=== PATIENT | female | born 1995 | race Hispanic/Latino ===

== ENCOUNTER 2017-03-20 10:45 | Emergency (ER) | payer OTHER, SELFPAY ==
[2017-03-20] MEDS ORDERED: Ondansetron ODT 4 MG TAB ONE (11:28)
== END 2017-03-20 11:47 | disposition home or self-care (01) ==
LOC: ERS 10:45
DX: O99.512 Diseases of the respiratory system complicating pregnancy, second trimester (principal); J11.1 Influenza due to unidentified influenza virus with other respiratory manifestations; O99.342 Other mental disorders complicating pregnancy, second trimester; F41.9 Anxiety disorder, unspecified; Z3A.14 14 weeks gestation of pregnancy
CPT/HCPCS: 99283; Q0162

== ENCOUNTER 2017-04-18 10:42 | Emergency (ER) | payer SELFPAY ==
[2017-04-18 11:24] LABS: #Basophils 0.1 thou/uL (0.0-0.2); #Eosinphils 0.1 thou/uL (0.0-0.7); #Lymphocytes 2.3 thou/uL (1.20-3.40); #Monocytes 0.4 thou/uL (0.11-0.59); #Neutrophils 6.9 thou/uL (1.40-6.50); %Basophils 0.6 % (0.0-1.0); %Eosinophils 1.2 % (0.0-10.0); %Lymphocytes 23.6 % (21.0-51.0); %Monocytes 4.4 % (0.0-10.0); %Neutrophils 70.3 % (42.0-75.0); Hemoglobin 11.4 g/dL (12.0-16.0); Mean Corpuscular HGB CONC 32.7 g/dL (32.0-36.0); Mean Corpuscular Hemoglobin 27.3 pg (27.0-31.0); Mean Corpuscular Volume 83.3 fl (81.0-99.0); Mean Platelet Volume 6.4 fL (7.4-10.4); Platelet Count 333 thou/uL (130-400); RBC Distribution Width 14.1 % (11.5-14.5); Red Blood Cell (RBC) Count 4.19 mill/uL (4.20-5.40); White Blood Cell (WBC) Count 9.8 thou/uL (4.8-10.8)
[2017-04-18] MEDS ORDERED: Acetaminophen 500 MG TAB ONE (11:26)
[2017-04-18 11:27] LABS: BHCG - Serum POSITIVE (NEGATIVE); Pregs Control Background? CLEAR/WHITE (CLR/WHITE); Pregs Control Bar Appear? YES (CONTROL BAR)
[2017-04-18 11:36] LABS: ALT (SGPT) Less than 7 U/L (8-55); AST (SGOT) 12 U/L (5-34); Albumin 3.4 g/dL (3.5-5.0); Alkaline Phosphatase 71 U/L (40-150); Anion Gap 12 mmol/L (10-20); BUN (Urea Nitrogen) 7 mg/dL (7.0-18.7); Bilirubin, Total 0.2 mg/dL (0.2-1.2); Calc. Creatinine Clearance 0 mL/min (70-130); Carbon Dioxide 24 mmol/L (22-29); Chloride 104 mmol/L (98-107); Estimated GFR-MDRD Greater than 90; Globulin 3.3 g/dL (2.4-3.5); Glucose 79 mg/dL (70-105); Lipase 38 U/L (8-78); Potassium 3.9 mmol/L (3.5-5.1); Protein, Total 6.7 g/dL (6.0-8.3); Sodium 136 mmol/L (136-145)
[2017-04-18 12:32] LABS: Bilirubin Negative (Negative); Blood, Urine Negative (Negative); Clarity TURBID (Clear); Glucose, Urine (Dipstick) Negative (Negative); Leukocyte Small (Negative); Nitrite Negative (Negative); Protein, Urine (Dipstick) Negative (Neg-Trace); Specific Gravity, Urine 1.019 (1.002-1.036); Urobilinogen 0.2 mg/dL (0.2-1.0); pH, Urine 7.5 (5.0-9.0)
[2017-04-18 12:40] LABS: Bacteria/HPF 2+ HPF (None Seen); Hyaline Casts/LPF 0-3 HYALINE CAST LPF (0-3 Hyaline); Pathc Cast-AUWi Flag 0.54 (0-2.49); WBC/HPF 21-50 HPF (0-3)
--- NOTE | 2017-04-18 13:03 | ULT ---
ULTRASOUND COMPLETE: History: 21-year-old female with history of back pain with a bulging umbilical hernia. History of nabothian cy st. FINDINGS: Fetus is in a transverse lie with head on the maternal left side. The placenta is anterior. Amniotic fluid is within normal limits. Cervical length approximates 4.9 cm. There is an approximately 1.1 x 1.3 x 1.7 cm cervical nabothian cyst. rate is 144 beats/minute. anatomy: anatomy was less then optimally visualized on this study. bladder, diaphra gm, three vessel cord, four chamber heart, stomach, and cord insert regions were demonstrated. Most o f the remainder of the anatomy was incompletely seen on this study. biometry: BPD 4.2 cm 18 weeks 5 days HC 16.3 cm 19 weeks 0 days AC 14.1 cm 19 weeks 3 days FL 3.1 cm 19 weeks 5 days IMPRESSION: 1. Single viable intrauterine fetus at 19 weeks 0 days, EDC 8-8-18. Estimated weight is 294 gra ms with a percentile of 81. 2. Unremarkable cervical length. Inadequate or incomplete anatomic visualization of the fetus. Other findings as above. POS: [facility]
[2017-04-18 13:04] LABS: RBC/HPF 0-3 HPF (0-3)
[2017-04-18] MEDS ORDERED: Ondansetron ODT 4 MG TAB ONE (13:31)
== END 2017-04-18 13:40 | disposition home or self-care (01) ==
LOC: ERS 10:42
DX: O99.612 Diseases of the digestive system complicating pregnancy, second trimester (principal); K42.9 Umbilical hernia without obstruction or gangrene; O23.42 Unspecified infection of urinary tract in pregnancy, second trimester; O99.342 Other mental disorders complicating pregnancy, second trimester; F41.9 Anxiety disorder, unspecified; Z3A.19 19 weeks gestation of pregnancy
CPT/HCPCS: 36415; 76805; 80053; 81003; 81015; 83690; 84702; 84703; 85025; 86900; 86901; 87077; 87086; 87186; Q0162

== ENCOUNTER 2018-09-17 14:32 | Outpatient (CLI) | payer OTHER ==
--- NOTE | 2018-09-17 15:32 | ULT ---
ULTRASOUND OBSTETRICAL COMPLETE: 09/17/18 HISTORY: 23-year-old female multigravida encounter for supervision of normal in second trimester. Ev aluate anatomy. FINDINGS: number: Rader. lie: Breech. Maternal cervix: 4 cm in length and closed. Placenta: Anterior. No placenta previa. Amniotic fluid volume: MADINA 14.5 cm. heart rate: 146 bpm The following anatomy is visualized, with no evidence of anomalies: Head, lateral ventricles, cerebellum, nose and lips, spine, upper limbs, lower limbs, four chamber he art, umbilical cord, cord insertion, stomach, kidneys, and bladder. biometry: Head circumference (HC): 19.4 cm 21w 5d Biparietal diameter (BPD): 5.1 cm 21w 4d Abdominal circumference (AC): 17.2 cm 22w 2d Femur length (FL): 3.7 cm 21w 5d Average ultrasound age (AUA): 21w 6d Estimated date of delivery (JAXON): 01/22/19 Estimated weight (EFW): 460 g +/- 67g (1 lb. 0 oz. +/- 2 oz.). IMPRESSION: 1. Live 2nd trimester intrauterine gestation. 2. Estimated gestational age of 21 weeks, 6 days. 3. Breech lie. 4. No anatomical abnormalities. jn [] POS: [facility]
== END 2018-09-17 14:33 | disposition home or self-care (01) ==
LOC: BICULT 14:32
PROVIDERS: ATTEND Family Medicine
DX: O09.92 Supervision of high risk pregnancy, unspecified, second trimester (principal); Z3A.21 21 weeks gestation of pregnancy; O32.1XX0 Maternal care for breech presentation, not applicable or unspecified
CPT/HCPCS: 76805

== ENCOUNTER 2018-12-03 09:20 | Day surgery (SDC) | payer OTHER ==
[2018-12-03 10:19] VITALS: BMI 34.5
[2018-12-03 10:20] VITALS: BP 111/56; TEMP 98.3
[2018-12-03] MEDS ORDERED: hydrALAZINE 20 MG/ML VIAL SLOW IVP PRN (10:43)
[2018-12-03 11:10] LABS: #Basophils 0.1 thou/uL (0.0-0.2); #Lymphocytes 1.9 thou/uL (1.20-3.40); #Monocytes 0.4 thou/uL (0.11-0.59); #Neutrophils 6.9 thou/uL (1.40-6.50); %Basophils 0.8 % (0.0-1.0); %Eosinophils 0.5 % (0.0-10.0); %Lymphocytes 20.3 % (21.0-51.0); %Monocytes 4.4 % (0.0-10.0); %Neutrophils 73.9 % (42.0-75.0); Mean Corpuscular HGB CONC 32.4 g/dL (32.0-36.0); Mean Corpuscular Hemoglobin 25.9 pg (27.0-31.0); Mean Corpuscular Volume 79.8 fL (78.0-98.0); Mean Platelet Volume 7.4 fL (7.4-10.4); Platelet Count 326 thou/uL (130-400); RBC Distribution Width 14.5 % (11.5-14.5); Red Blood Cell (RBC) Count 3.87 mill/uL (4.20-5.40); White Blood Cell (WBC) Count 9.4 thou/uL (4.8-10.8)
[2018-12-03 11:30] LABS: ALT (SGPT) 9 U/L (8-55); AST (SGOT) 13 U/L (5-34); Albumin 3.2 g/dL (3.5-5.0); Alkaline Phosphatase 126 U/L (40-110); Anion Gap 9 mmol/L (10-20); BUN (Urea Nitrogen) 6 mg/dL (7.0-18.7); Bilirubin, Total 0.3 mg/dL (0.2-1.2); Calc. Creatinine Clearance 211 mL/min (70-130); Calcium 8.5 mg/dL (7.8-10.44); Carbon Dioxide 24 mmol/L (22-29); Chloride 105 mmol/L (98-107); Estimated GFR-MDRD Greater than 90; Globulin 3.4 g/dL (2.4-3.5); Glucose 73 mg/dL (70-105); Potassium 3.9 mmol/L (3.5-5.1); Protein, Total 6.6 g/dL (6.0-8.3); Sodium 134 mmol/L (136-145)
[2018-12-03 12:01] LABS: Bacteria/HPF None Seen HPF (None Seen); Bilirubin Negative (Negative); Blood, Urine Negative (Negative); Clarity Clear (Clear); Glucose, Urine (Dipstick) Normal (Negative); Leukocyte Negative Leu/uL (Negative); Nitrite Negative (Negative); Protein, Urine (Dipstick) 20 mg/dL (Neg-Trace); Urobilinogen Normal mg/dL (Less than 2); WBC/HPF 0-3 HPF (0-3)
[2018-12-03] MEDS ORDERED: Lactated Ringer's 1,000 ML IV SCH (13:00)
--- NOTE | 2018-12-04 07:26 | SS ---
DATE OF ADMISSION: 12/03/2018 DATE OF DISCHARGE: 12/03/2018 REGULAR PHYSICIAN: Eugenio Hagen MD. EVALUATING PHYSICIAN: Rufus Beavers MD CHIEF COMPLAINT: Multiple complaints, not feeling well. HISTORY OF PRESENT ILLNESS: Ms. Lanier is a 23-year-old G4, P4, with an estimated date of confinement of 01/11/2019, who presents with multiple complaints including feeling of choking, nausea with 3 episodes of vomiting as well as pelvic pressure. She denies leakage of fluid or bleeding. Her care has been with Dr. Hagen and she has a scheduled for later in her . PAST OBSTETRICAL HISTORY: Includes 3 sections, one for a set of twins. She has also had a cerclage in the past. PAST MEDICAL HISTORY: None. PAST SURGICAL HISTORY: section x3, cerclage placement. CURRENT MEDICATIONS: vitamins. ALLERGIES: NO KNOWN ALLERGIES. SOCIAL HISTORY: Denies tobacco, alcohol, or drug use. FAMILY HISTORY: Unremarkable. REVIEW OF SYSTEMS: Denies bleeding or ruptured membranes. She denies decreased movement. PHYSICAL EXAMINATION: VITAL SIGNS: Initial blood pressure is 111/56 with a pulse of 89. Her O2 saturation on room air is 100%. GENERAL: She answers questions appropriately and does not appear to be in significant distress. ABDOMEN: Soft, nontender, and gravid. PELVIC: Shows the cervix to be closed, midposition with the presenting part high. heart rate tracing is stable. There are no decelerations seen. No significant uterine contractions are seen. LABORATORY DATA: White count 9.4, hemoglobin and hematocrit 10.0 and 30.9 respectively. Platelet count 326,000. Chemistries; sodium 134, potassium 3.9, carbon dioxide 24, BUN 6, creatinine 0.63, glucose 73, total bilirubin 0.3, AST and ALT are 13 and 9 respectively. Urinalysis shows a specific gravity of 1.024 with ketones noted. The remainder of her urinalysis is negative. The patient was hydrated with a liter of lactated Ringer's and feels much better after this was administered. ASSESSMENT: 1. A 34 and 3/7th week intrauterine . 2. No evidence of labor. 3. Suspect reflux as etiology of discomfort. PLAN: The patient will be dismissed home. She was instructed to keep herself well hydrated at home with 6 to 8 glasses of water a day. She was also told that she could use Pepcid [id number] and take this twice a day for any reflux like symptoms she might encounter. She voiced understanding of her discharge instructions and is set to see Dr. Hagen within the next 2 weeks. Job ID: [id number]
== END 2018-12-03 14:40 | disposition home or self-care (01) ==
LOC: L&D/OP 09:20
PROVIDERS: ATTEND Family Medicine
DX: O21.2 Late vomiting of pregnancy (principal); O99.89 Other specified diseases and conditions complicating pregnancy, childbirth and the puerperium; R10.2 Pelvic and perineal pain; O34.219 Maternal care for unspecified type scar from previous cesarean delivery; Z3A.34 34 weeks gestation of pregnancy
CPT/HCPCS: 36415; 80053; 81003; 85025; 96360; 99283

== ENCOUNTER 2019-01-07 12:00 | Inpatient (IN) | payer OTHER ==
[2019-01-09] MEDS: Lactated Ringer's 1,000 ML IV SCH ×2 (11:20→12:08)
[2019-01-09] MEDS ORDERED: Bicitra 30 ML UDCUP PO SCH (11:42)
[2019-01-09] MEDS ORDERED: hydrALAZINE 20 MG/ML VIAL SLOW IVP PRN ×2 (11:42→16:09)
[2019-01-09] MEDS ORDERED: CEFAZOLIN 2 GM in Premix Bag 1 BAG IVPB SCH (11:42)
[2019-01-09] MEDS ORDERED: Promethazine HCl 25 MG/ML VIAL IM PRN ×2 (11:42→12:58)
[2019-01-09] MEDS ORDERED: Ondansetron PF 4 MG/2 ML Vial IVP PRN ×3 (11:42→16:09)
[2019-01-09] MEDS ORDERED: MORPHINE 5 MG/10 ML PF VIAL ONE (11:44)
[2019-01-09] MEDS ORDERED: PHENYLEPHRINE-NS 100 MCG/ML 10 ML SYRINGE ONE ×2 (11:45→11:49)
[2019-01-09] MEDS ORDERED: Ketorolac Tromethamine 30 MG/ML VIAL ONE (11:45)
[2019-01-09] MEDS ORDERED: Oxytocin 10 UNITS/ML VIAL ONE ×2 (11:45→13:44)
[2019-01-09] MEDS ORDERED: Ondansetron PF 4 MG/2 ML Vial ONE (11:45)
[2019-01-09 11:48] LABS: Mean Corpuscular HGB CONC 32.2 g/dL (32.0-36.0); Mean Corpuscular Volume 77.8 fL (78.0-98.0); Mean Platelet Volume 7.6 fL (7.4-10.4); Platelet Count 334 thou/uL (130-400); RBC Distribution Width 14.6 % (11.5-14.5); White Blood Cell (WBC) Count 7.9 thou/uL (4.8-10.8)
[2019-01-09 12:14] VITALS: BMI 34.4
[2019-01-09 12:34] LABS: HBSAg Index 0.17 S/CO (0-0.99); Hep B Surf Ag Non-Reactive S/CO (NonReactive)
[2019-01-09] MEDS ORDERED: Ondansetron HCl/PF 4 MG/2 ML Vial IVP PRN (12:58)
[2019-01-09] MEDS ORDERED: Naloxone HCl 0.4 mg/ml Vial IVP PRN ×2 (12:58)
[2019-01-09] MEDS ORDERED: diphenhydrAMINE 50 MG/ML VIAL IVP PRN (12:58)
[2019-01-09] MEDS ORDERED: Meperidine HCl/PF 25 MG/ML VIAL SLOW IVP PRN (12:58)
[2019-01-09] MEDS ORDERED: Naloxone HCl 0.4 mg/ml Vial IV PRN (12:58)
[2019-01-09] MEDS ORDERED: Ketorolac Tromethamine 30 MG/ML VIAL IVP PRN (12:58)
[2019-01-09] MEDS ORDERED: Ketorolac Tromethamine 30 MG/ML VIAL IVP SCH (13:00)
[2019-01-09] MEDS ORDERED: Communication Order-Pharmacy FS SCH (13:00)
[2019-01-09] MEDS ORDERED: Promethazine HCl 25 MG/ML VIAL ONE (13:12)
[2019-01-09] MEDS ORDERED: Tranexamic Acid 1,000 MG/10 ML VIAL ONE (13:23)
[2019-01-09] MEDS ORDERED: Tranexamic Acid 1,000 MG in Sodium Chloride 0.9% 250 ML 250 ML IVP SCH (14:00)
[2019-01-09] MEDS ORDERED: Meperidine HCl/PF 25 MG/ML VIAL ONE (14:42)
[2019-01-09] MEDS ORDERED: diphenhydrAMINE 50 MG/ML VIAL ONE (14:43)
[2019-01-09 15:01] LABS: Syphilis Antibody Nonreactive (Nonreactive); Syphilis Antibody Index 0.11 S/CO (<1.00 Non-Reactive)
[2019-01-09] MEDS ORDERED: Bisacodyl 10 MG SUPP PR PRN (16:09)
[2019-01-09] MEDS ORDERED: Meperidine HCl/PF 25 MG/ML VIAL IM PRN (16:09)
[2019-01-09] MEDS ORDERED: Lanolin Ointment 7 GM TUBE TOP PRN (16:09)
[2019-01-09] MEDS ORDERED: NS / Oxytocin 40 units/1000ml 1,000 ML IV SCH (16:09)
[2019-01-09] MEDS: Ketorolac Tromethamine 30 MG/ML VIAL IVP SCH (20:13)
[2019-01-09] MEDS: Docusate Calcium (SURFAK) 240 MG CAP PO SCH (22:07)
[2019-01-09] MEDS: Ferrous Sulfate 325 MG TAB PO SCH (22:07)
[2019-01-10] MEDS: Ketorolac Tromethamine 30 MG/ML VIAL IVP SCH ×2 (02:46→08:44)
[2019-01-10 04:59] LABS: Hemoglobin 7.3 g/dL (12.0-16.0); Mean Corpuscular Hemoglobin 25.1 pg (27.0-31.0); Mean Corpuscular Volume 78.6 fL (78.0-98.0); Mean Platelet Volume 7.4 fL (7.4-10.4); Platelet Count 245 thou/uL (130-400); RBC Distribution Width 14.5 % (11.5-14.5); Red Blood Cell (RBC) Count 2.92 mill/uL (4.20-5.40); White Blood Cell (WBC) Count 7.3 thou/uL (4.8-10.8)
[2019-01-10] MEDS: Simethicone Chewable 80 MG TAB PO PRN ×3 (06:12→22:41)
[2019-01-10] MEDS: HYDROcodone/Acetaminophen 5/325 mg Tablet PO PRN ×3 (06:12→17:52)
[2019-01-10] MEDS: diphenhydrAMINE 25 MG CAP PO PRN ×2 (06:16→22:41)
[2019-01-10] MEDS ORDERED: Sodium Chloride 0.9% 10 ML ONE (08:13)
[2019-01-10] MEDS: Ferrous Sulfate 325 MG TAB PO SCH ×2 (08:44→21:46)
[2019-01-10] MEDS: Prenatal Vitamin 1 TAB PO SCH (08:44)
[2019-01-10] MEDS: Docusate Calcium (SURFAK) 240 MG CAP PO SCH ×2 (08:44→21:47)
[2019-01-10] MEDS ORDERED: Adacel (T-DAP) 0.5 ML SYRINGE IM ONE (09:00)
[2019-01-10] MEDS: Ibuprofen 800 MG TAB PO SCH ×2 (13:49→21:47)
[2019-01-11] MEDS: HYDROcodone/Acetaminophen 5/325 mg Tablet PO PRN ×4 (01:02→15:06)
[2019-01-11] MEDS: Ibuprofen 800 MG TAB PO SCH ×3 (06:14→20:45)
[2019-01-11] MEDS: Simethicone Chewable 80 MG TAB PO PRN (06:14)
--- NOTE | 2019-01-11 09:23 | PDOC.OPDEL ---
OB Operative/Delivery Note Delivery Dr/Surgeon: Hieu Assist: Trey Pre-Delivery Diagnosis: scheduled section Procedure/Post Delivery Dx: repeat low transverse CS Weeks gestation: 39 (39.4 wks) Anesthesia: spinal - Findings A Sex: male Weight: 2.988 kg - 1 min: 9 - 5 min: 9 - Additional Findings/Plan Placenta delivered: manual removal findings: low transverse hysterotomy without extension, normal tubes, normal ovaries Estimated blood loss: 1259 mL Compilations/Other Findings: Please note dictation done AM of 01/10/2019, but is not yet viewable. Procedure Note Date of Procedure: 01/09/2019 Resident Surgeon: Hansa Yang DO Attending Surgeon: Eugenio Hagen MD Procedure: Repeat low transverse caesarean section Preoperative Diagnosis: 1. TIUP 2. Previous C/S x3 Postoperative Diagnosis: 1. TIUP, delivered 2. Previous C/S x3 3. s/p rLTCS Anesthesia: spinal Indications: The patient is a 23 year old female at 39.4 weeks gestation who presents for a repeat scheduled . Procedure in Detail: After risks, benefits, and alternatives were explained to the patient, she gave informed consent. Pre-operative antibiotics included Cefazolin 2 gram IV. The patient was taken to the operating room and spinal anesthesia was initiated. She was placed in the supine position with a left tilt and prepped and draped in usual sterile fashion. A Pfannenstiel incision was made with a scalpel and carried down to the level of the fascia which was sharply nicked. Moderate amount of adhesion noted at this time. The fascial cut was extended bilaterally with Malagon sissors. The inferior and superior edges of the cut fascial edges were elevated with Jonh clamps and the underlying rectus muscles were sharply free using malagon scissors and scalpel given extensive adhesions along superior aspect of cut fascial edge. The recti were divided using hemostats and malagon scissors. Room was created by extending cut along recti muscles both superiorly and inferiorly. The peritoneum was entered bluntly and retracted manually. Bladder blade was placed. Bladder flap was created with Metzenbaum scissors. A low transverse score was made with the scalpel and the uterus was entered in the midline with the scalpel. Clear fluid was seen after rupture with allis clamp. The hysterotomy was extended manually. The infant was noted to be vertex and was easily delivered by fundal pressure. Mouth and nares were bulb suctioned. Cord clamped and cut and grossly normal male was handed to waiting nurse. Cord blood was obtained. Placenta was manually extracted, found to be intact with 3 vessel cord and discarded. The uterus was externalized and the endometrium was curetted with a dry lap. The bladder blade was replaced and the uterus was closed with a running locking #1 Monocryl suture. Of note, there appeared to be remnants of placenta with a small portion of the right fundus still boggy and bleeding after uterus was thoroughly curetted with dry laps. Hospitalist was called in to examine. All suspected placental tissue removed, and the boggy area on the right side near the fundus was brought together using 1-0 Vicryl in a figure of eight fashion. Several smaller stitches were thrown to help achieve hemostasis. A figure of eight was also used along the hysterotomy site. After this hemostasis was achieved. The abdomen was irrigated with saline and suctioned free of clots. The uterus was internalized and the hysterotomy was again noted to be hemostatic. The peritoneum was closed using 3-0 Vicryl. The fascia was closed with a running non-locking 0-PDS suture. The subcutaneous tissue was irrigated and bleeders were cauterized. The subcutatneous tissue was brought together using 2-0 Plain gut. The skin was approximated with cinthia and a pressure dressing was placed. All counts were correct. The patient tolerated the procedure well and was taken to the recovery room in stable condition. Estimated Blood Loss: 1200 mL Complications: None Specimens: Cord blood sent to lab for blood type Findings: Grossly normal male with apgars of 9 and 9. Grossly normal placenta with 3 vessel cord discarded. Drains: Pena to gravity draining clear urine
[2019-01-11] MEDS: Ferrous Sulfate 325 MG TAB PO SCH ×2 (09:24→20:46)
[2019-01-11] MEDS: Prenatal Vitamin 1 TAB PO SCH (09:24)
[2019-01-11] MEDS: Docusate Calcium (SURFAK) 240 MG CAP PO SCH ×2 (09:24→20:45)
[2019-01-11] MEDS: diphenhydrAMINE 25 MG CAP PO PRN (11:36)
[2019-01-11] MEDS ORDERED: HYDROcodone/Acetaminophen 7.5/325 mg Tablet PO PRN (15:11)
[2019-01-11] MEDS ORDERED: Guaifenesin DM 100-10/5 ML UDCUP PO SCH (15:15)
[2019-01-11] MEDS: Guaifenesin DM 100-10/5 ML UDCUP PO SCH ×2 (17:19→20:46)
[2019-01-12] MEDS: HYDROcodone/Acetaminophen 7.5/325 mg Tablet PO PRN ×2 (01:00→11:39)
[2019-01-12] MEDS: Guaifenesin DM 100-10/5 ML UDCUP PO SCH ×4 (01:02→11:37)
[2019-01-12] MEDS: Ibuprofen 800 MG TAB PO SCH ×2 (07:12→14:13)
[2019-01-12 07:21] VITALS: TEMP 98.5
[2019-01-12] MEDS: Ferrous Sulfate 325 MG TAB PO SCH (09:26)
[2019-01-12] MEDS: Docusate Calcium (SURFAK) 240 MG CAP PO SCH (09:26)
[2019-01-12] MEDS: Prenatal Vitamin 1 TAB PO SCH (09:26)
[2019-01-12 15:27] VITALS: BP 136/88
--- NOTE | 2019-01-13 09:46 | OP ---
DATE OF PROCEDURE: 01/09/2019 RESIDENT SURGEON: Dr. Hansa Yang. ATTENDING SURGEON: Dr. Eugenio Hagen. PROCEDURE PERFORMED: Repeat low transverse section. PREOPERATIVE DIAGNOSES: 1. Term intrauterine . 2. Previous x3. POSTOPERATIVE DIAGNOSES: 1. Term intrauterine , delivered. 2. Previous x3. ANESTHESIA: Spinal. INDICATIONS: This is a 23-year-old, G4, P2-1-0-4 at 39 and 4 weeks, who presented for repeat scheduled . PROCEDURE IN DETAIL: After risks, benefits, and alternatives were explained to the patient, she gave informed consent. Preoperative antibiotics included cefazolin 2 g IV. The patient was taken to the operating room, and spinal anesthesia was initiated. She was placed in supine position with a left tilt and prepped and draped in the usual sterile fashion. The Pfannenstiel incision was made with a scalpel and carried down to the level of the fascia, which was sharply nicked. There was noted to be fairly extensive scarring. The fascial cut was extended bilaterally with Malagon scissors as well as with the scalpel. The inferior and superior fascial edges were elevated with Jonh clamp, and the underlying rectus muscles were sharply dissected free. Again, there was extensive scarring, which required use of Malagon scissors and scalpel to take down. The recti muscles were clamped with hemostats, and Malagon scissors and Metzenbaum scissors were used to enter in the midline. The incision along the rectus muscles was then extended superiorly and inferiorly. The bladder blade was then placed. A bladder flap was created with Metzenbaum scissors. There were some mild adhesions noted on the uterus, some of which we were able to be taken down when the bladder flap was made. A low transverse score was made with a scalpel, and uterus was entered in the midline within the scalpel. Clear fluid was seen after rupture with Allis clamp. Hysterotomy was extended manually. Infant was noted to be vertex and was easily delivered by fundal pressure. Mouth and nares were bulb suctioned. Cord was clamped and cut and grossly normal male was handed to awaiting nurse. Cord blood was obtained. Placenta was manually extracted and found to be intact with three-vessel cord. Some remnants of the placenta appeared to still be in the uterus. The uterus was curetted extensively with dry lap. The hospitalist was called and confirmed that all of the placenta had been adequately removed. As there was an area noted to be boggy along the uterus, where the placenta was most likely adhered, a large gjbkhx-bm-poize stitch was used to bring the area of the fundus on the right side together to account for the atony. After the stitch, the degree of bleeding in the uterus had decreased. The hysterotomy was then closed with a running locking #1 Monocryl suture, followed by several [id number] sutures in a horizontal fashion. Seprafilm was placed. At this point, the uterus was then internalized and abdomen was irrigated with saline and suctioned free of clots. The hysterotomy was again visualized and noted to be hemostatic. The peritoneum was closed with Vicryl suture. The fascia was then closed with a running nonlocking 0 PDS suture. Subcutaneous tissue was irrigated, and bleeders were cauterized. The subcutaneous tissue was brought together using 2-0 Plain gut. The skin was then approximated with cinthia, and pressure dressing was placed. All counts were correct. The patient tolerated the procedure well , was taken to the recovery room in stable condition. ESTIMATED BLOOD LOSS: 1200 mL. COMPLICATIONS: None. SPECIMENS: Cord blood sent to lab for blood type. Grossly normal male infant with Apgars of 9 and 9 at one and five minutes respectively. Placenta was intact with 3-vessel cord. DRAINS: Pena to gravity, draining clear urine. Job ID: [id number] MTDD
--- NOTE | 2019-01-14 18:18 | PQF ---
[employer] Winform Viewer OSIRIS MORENO ROLAND R MD [id number] CLINICAL DOCUMENTATION CLARIFICATION FORM: POST DISCHARGE Addendum to original discharge summary date: ____ Late entry note date: __ DATE: ATTN: Eugenio Hung Please exercise your independent, professional judgment in responding to the clarification form. Clinical indicators are provided on the bottom of this form for your review Can you please further clarify the diagnosis based on the clinical indicators below? Please check appropriate box(s): [ ] Acute blood loss anemia [ ] Post-op anemia related to acute blood loss [ ] Other diagnosis please specify [ ] Unable to determine In addition, please specify: Present on Admission (POA): [ ] Yes [ ] No [ ] Unable to determine For continuity of documentation, please document condition throughout progress notes and discharge summary. Thank You. CLINICAL INDICATORS - SIGNS / SYMPTOMS / LABS Immediate Post OP Note- mild atony and suspected area of micro accreta, resolved with compression suture Problem List- acute on chronic blood loss anemia Op Report Pg.1- Repeat low transverse CS Op report pg.2- Estimated blood loss 1200ml Laboratory- Hgb-10.0L, 7.3L Laboratory- Hct 31.1L, 22.9L RISK FACTORS 23 years old, G$, P2-1-4 at 39 weeks- OP report Pg.1 Repeat CS- OP report pg.1 TREATMENTS: ferrous sulfate 325 BID- MAR H and H monitoring- Laboratory IV Fluids- MAR (This form is maintained as a part of the permanent medical record) 2014 [employer]. All Rights Reserved [email or web address] [[email or web address] [email or web address]
== END 2019-01-12 16:30 | disposition home or self-care (01) | DRG 788 ==
LOC: L&D-LIB 01-09 10:48 → 3SW 01-09 16:27
PROVIDERS: ADMIT Family Medicine; ATTEND Family Medicine
PROC: 10D00Z1 Extraction of Products of Conception, Low, Open Approach (ICD-10-PCS; principal; 2019-01-09)
DX: O34.211 Maternal care for low transverse scar from previous cesarean delivery (principal); Z3A.39 39 weeks gestation of pregnancy; Z37.0 Single live birth; O62.2 Other uterine inertia
CPT/HCPCS: 36415; 51702; 85027; 86780; 86850; 86900; 86901; 87340; J0690; J1200; J1885; J2175; J2274; J2405; J2550; J2590; J7050; Q0163

== ENCOUNTER 2020-04-26 10:52 | Emergency (ER) | payer OTHER ==
[2020-04-26 12:03] LABS: #Eosinphils 0.1 thou/uL (0.0-0.7); #Lymphocytes 1.5 thou/uL (1.20-3.40); #Monocytes 0.3 thou/uL (0.11-0.59); #Neutrophils 5.5 thou/uL (1.40-6.50); %Basophils 0.2 % (0.0-1.0); %Lymphocytes 20.4 % (21.0-51.0); %Monocytes 4.3 % (0.0-10.0); Hemoglobin 9.5 g/dL (12.0-16.0); Mean Corpuscular HGB CONC 32.3 g/dL (32.0-36.0); Mean Corpuscular Hemoglobin 25.5 pg (27.0-31.0); Mean Platelet Volume 7.7 fL (7.4-10.4); Platelet Count 321 thou/uL (130-400); Red Blood Cell (RBC) Count 3.72 mill/uL (4.20-5.40); White Blood Cell (WBC) Count 7.4 thou/uL (4.8-10.8)
[2020-04-26 12:22] LABS: ALT (SGPT) Less than 7 U/L (8-55); AST (SGOT) 11 U/L (5-34); Albumin 3.1 g/dL (3.5-5.0); Alkaline Phosphatase 98 U/L (40-110); Anion Gap 11 mmol/L (10-20); BUN (Urea Nitrogen) 7 mg/dL (7.0-18.7); Bilirubin, Total Less than 0.2 mg/dL (0.2-1.2); Calc. Creatinine Clearance 0 mL/min (70-130); Calcium 8.1 mg/dL (7.8-10.44); Carbon Dioxide 24 mmol/L (22-29); Chloride 107 mmol/L (98-107); Globulin 3.4 g/dL (2.4-3.5); Glucose 113 mg/dL (70-105); Potassium 3.5 mmol/L (3.5-5.1); Protein, Total 6.5 g/dL (6.0-8.3); Sodium 138 mmol/L (136-145)
[2020-04-26 12:46] LABS: Bacteria/HPF None Seen HPF (None Seen); Bilirubin Negative (Negative); Blood, Urine Negative (Negative); Clarity Clear (Clear); Glucose, Urine (Dipstick) Normal (Negative); Ketone, Urine Negative (Negative); Leukocyte Negative Leu/uL (Negative); Nitrite Negative (Negative); Protein, Urine (Dipstick) 50 mg/dL (Neg-Trace); RBC/HPF 0-3 HPF (0-3); Specific Gravity, Urine 1.034 (1.002-1.036); Urobilinogen 3 mg/dL (Less than 2); WBC/HPF 0-3 HPF (0-3); pH, Urine 6.5 (5.0-9.0)
== END 2020-04-26 12:59 | disposition left against medical advice (07) ==
LOC: ERS 10:52
DX: O42.913 Preterm premature rupture of membranes, unspecified as to length of time between rupture and onset of labor, third trimester (principal); O99.613 Diseases of the digestive system complicating pregnancy, third trimester; K42.9 Umbilical hernia without obstruction or gangrene; Z3A.29 29 weeks gestation of pregnancy
CPT/HCPCS: 36415; 76815; 80053; 81003; 81015; 84702; 85025